=== PATIENT | male | born 1960 | race Caucasian/White ===

== ENCOUNTER 2019-02-15 09:00 | Inpatient (IN) | payer MEDICAID ==
[~2019-02-15] VITALS: Ht 182.9 cm; Wt 69.9 kg
[~2019-02-15 09:00] MED LIST: PHEN100C; vitamin d PO
--- NOTE | 2019-02-15 09:09 | NUR ---
LYUDMILA [facility] AFTER GLF AT [facility]. PT STATES "I FELL FROM THE HEAT". PT NOTED TOHAVE 4 SWEATERS ON. DENIES FEELING LIGHTHEADED/DIZZY PRIOR TO GLF. PT DOES NOT HAVE ANY CURRENT COMPLAINTS. STATES "I'M JUST HERE BECAUSE THEY WANTED ME HERE". PER PT AND [facility] GILMAN HAS PROTOCOLS AND MUST BE MEDICALLY CLEARED TO RETURN. PT RESTING ON GURNEY. NADN. VSS. MONITORS APPLIED.
[2019-02-15] MEDS ORDERED: SODIUM CHLORIDE 0.9% 1,000ML IVBOLUS ONE (09:30)
[2019-02-15 09:44] LABS: BASOPHILS # (AUTO) 0.01 x10^3/uL (0-0.1); BASOPHILS % (AUTO) 0 % (0-1); EOSINOPHILS # (AUTO) 0.14 x10^3/uL (0-0.4); EOSINOPHILS % (AUTO) 4 % (1-7); LYMPHOCYTES # (AUTO) 1.14 x10^3/uL (1-3.4); LYMPHOCYTES % (AUTO) 31 % (22-44); MD NO; MEAN CORPUSCULAR HEMOGLOBIN 34.9 pg (27.5-34.5); MEAN CORPUSCULAR HGB CONC 33.4 g/dL (33.2-36.2); MEAN CORPUSCULAR VOLUME 104.5 fL (81-97); MEAN PLATELET VOLUME 9.8 fL (7.4-10.4); MONOCYTES # (AUTO) 0.34 x10^3/uL (0.2-0.8); MONOCYTES % (AUTO) 9 % (2-9); NEUTROPHILS # (AUTO) 2.11 x10^3/uL (1.8-6.8); NEUTROPHILS % (AUTO) 56 % (42-75); PLATELET COUNT 109 x10^3/uL (130-400); RED BLOOD COUNT 3.58 x10^6/uL (4.38-5.82)
[2019-02-15 09:52] LABS: ANION GAP 4 mmol/L (5-15); CALCIUM 8.7 mg/dL (8.5-10.1); CHLORIDE 108 mmol/L (98-107); CREATININE 0.83 mg/dL (0.7-1.3)
[2019-02-15 09:56] LABS: TROPONIN I < 0.015 ng/mL (0.000-0.045)
--- NOTE | 2019-02-15 10:12 | NUR ---
PT RESTING ON GURNEY. NADN. HAYES.
[2019-02-15 10:54] LABS: MICROSCOPIC NOT IND
--- NOTE | 2019-02-15 12:02 | NUR ---
SPOKE W/ BERNARDO FROM [employer] WHO STATES SHE WILL FAX OVER PT MEDICATION LIST.
[2019-02-15 12:14] LABS: FREE T4 (FREE THYROXINE) 1.04 ng/dL (0.76-1.46)
--- NOTE | 2019-02-15 12:54 | NUR ---
PT CHART REVIEWED AND PLACED FOR RECHECK.
--- NOTE | 2019-02-15 13:15 | NUR ---
PT RESTING ON GURNEY. NADN. HAYES.
[2019-02-15] MEDS ORDERED: SODIUM CHLORIDE 0.9% 1,000 ML IV ONE (13:43)
--- NOTE | 2019-02-15 13:52 | NUR ---
PT RESTING ON GURNEY. NADN. HAYES.
[2019-02-15] MEDS ORDERED: ATOR-2 PO (13:56)
[2019-02-15] MEDS ORDERED: THIA500T PO (13:56)
[2019-02-15] MEDS ORDERED: VIT1TABL3 PO (13:56)
[2019-02-15] MEDS ORDERED: DIVA-61 PO (13:56)
[2019-02-15] MEDS ORDERED: LEVE500T8 PO (13:56)
[2019-02-15] MEDS ORDERED: ZONI100C2 PO (13:56)
[2019-02-15] MEDS ORDERED: FAMO20TA7 PO (13:56)
[2019-02-15] MEDS ORDERED: SODIUM CHLORIDE FLUSH 10ML SYR IVF PRN (14:00)
--- NOTE | 2019-02-15 14:10 | NUR ---
REPORT GIVEN TO JOSS SHRESTHA RN. ALL QUESTIONS ANSWERED. AWAITING PT TRANSPORT.
--- NOTE | 2019-02-15 14:51 | NUR ---
BREAK NOTE: PT. IS RESTING WITHOUT CONCERNS. VSS. PT. REMAINS MONITORED.
[2019-02-15] MEDS ORDERED: BISACODYL 10 MG SUPP PR PRN (15:00)
[2019-02-15] MEDS ORDERED: DOCUSATE 100 MG CAPSULE PO PRN (15:00)
[2019-02-15] MEDS ORDERED: POLYETHYLENE GLYCOL 17 GM PACKET PO PRN (15:00)
[2019-02-15] MEDS ORDERED: hydrALAzine 20 MG/ML, 1ML IVPush PRN (15:00)
[2019-02-15] MEDS ORDERED: HEPARIN 5,000 UNITS/ML, 1ML SQ SCH (15:00)
--- NOTE | 2019-02-15 15:16 | NUR ---
PT TAKEN FOR CT IN STABLE CONDITION.
[2019-02-15] MEDS ORDERED: NICOTINE 14MG/24 HR PATCH.TD24 ONE (15:21)
[2019-02-15] MEDS: SODIUM CHLORIDE 0.9% 1,000 ML IV SCH ×2 (15:29→22:15)
[2019-02-15] MEDS: NICOTINE 14MG/24 HR PATCH.TD24 TD SCH (15:30)
--- NOTE | 2019-02-15 15:32 | NUR ---
PT PROVIDED W/ DINNER TRAY.
[2019-02-15 15:58] LABS: AMPHETAMINE SCREEN, URINE Negative (Negative); BARBITURATE SCREEN, URINE Negative (Negative); BENZODIAZEPINE SCREEN, URINE Negative (Negative); CANNABINOID SCREEN, URINE Negative (Negative); COCAINE SCREEN, URINE Negative (Negative); METHADONE SCREEN, URINE Negative (Negative); OPIATE SCREEN, URINE Negative (Negative)
--- NOTE | 2019-02-15 16:00 | NUR ---
HOSPITAL BED REQUESTED.
[2019-02-15 16:22] LABS: INTERNATIONAL NORMALIZED RATIO 1.03 (0.93-1.1); PROTHROMBIN TIME 10.8 Seconds (9.6-11.5)
[2019-02-15 16:28] LABS: CREATINE KINASE, TOTAL 74 U/L (39-308); TROPONIN I < 0.015 ng/mL (0.000-0.045)
[2019-02-15 16:30] LABS: BASOPHILS # (AUTO) 0.01 x10^3/uL (0-0.1); BASOPHILS % (AUTO) 0 % (0-1); EOSINOPHILS # (AUTO) 0.13 x10^3/uL (0-0.4); EOSINOPHILS % (AUTO) 3 % (1-7); LYMPHOCYTES # (AUTO) 1.44 x10^3/uL (1-3.4); LYMPHOCYTES % (AUTO) 33 % (22-44); MD NO; MEAN CORPUSCULAR HGB CONC 33.6 g/dL (33.2-36.2); MEAN CORPUSCULAR VOLUME 104.2 fL (81-97); MEAN PLATELET VOLUME 9.6 fL (7.4-10.4); MONOCYTES # (AUTO) 0.22 x10^3/uL (0.2-0.8); MONOCYTES % (AUTO) 5 % (2-9); NEUTROPHILS # (AUTO) 2.58 x10^3/uL (1.8-6.8); NEUTROPHILS % (AUTO) 59 % (42-75); PLATELET COUNT 124 x10^3/uL (130-400); RED BLOOD COUNT 4.14 x10^6/uL (4.38-5.82); RED CELL DISTRIBUTION WIDTH 14.7 % (9.4-14.8)
--- NOTE | 2019-02-15 17:02 | NUR ---
PT RESTING ON GURNEY. NADN. HAYES.
--- NOTE | 2019-02-15 17:45 | NUR ---
PT MOVED FROM [facility] TO [facility] BED.
--- NOTE | 2019-02-15 18:59 | NUR ---
REPORT GIVEN TO KOURTNEY HARRELL RN.
[2019-02-15] MEDS ORDERED: LEVETIRACETAM 500 MG TABLET ONE (20:05)
[2019-02-15] MEDS ORDERED: FAMOTIDINE 20 MG TABLET ONE (20:05)
[2019-02-15] MEDS ORDERED: DIVALPROEX 500 MG TAB.ER.24H ONE (20:06)
[2019-02-15] MEDS: ZONISAMIDE 50 MG CAPSULE PO SCH (20:34)
[2019-02-15] MEDS: FAMOTIDINE 20 MG TABLET PO SCH (20:35)
[2019-02-15] MEDS: DIVALPROEX 500 MG TABLET.DR PO SCH (20:35)
[2019-02-15] MEDS: LEVETIRACETAM 500 MG TABLET PO SCH (20:35)
[2019-02-15 21:00] VITALS: BP 91/63
[2019-02-15] MEDS ORDERED: ATORVASTATIN 80 MG TABLET PO SCH (21:00)
[2019-02-15 21:09] LABS: TROPONIN I < 0.015 ng/mL (0.000-0.045)
[2019-02-15 22:17] VITALS: BP 91/63
[2019-02-16 01:25] VITALS: BP 93/55
[2019-02-16] MEDS: SODIUM CHLORIDE 0.9% 1,000 ML IV SCH ×3 (04:05→21:38)
[2019-02-16 06:13] LABS: CHLORIDE 111 mmol/L (98-107)
[2019-02-16 06:24] LABS: ALANINE AMINOTRANSFERASE 13 U/L (12-78); ALBUMIN 2.7 g/dL (3.4-5.0); ALKALINE PHOSPHATASE 39 U/L (45-117); ANION GAP 6 mmol/L (5-15); BILIRUBIN,TOTAL 0.4 mg/dL (0.2-1.0); CALCIUM 8.1 mg/dL (8.5-10.1); CHOL/HDL RATIO 2.1; CHOLESTEROL, TOTAL 90 mg/dL (140-239); CREATININE 0.65 mg/dL (0.7-1.3); HDL CHOL % 47 % (26-37); HDL CHOLESTEROL (DIRECT) 42 mg/dL (40-60); LDL CHOLESTEROL,CALCULATED 33 mg/dL (54-169); LDL/HDL RATIO 0.8 (0.5-3.0); TOTAL PROTEIN 5.4 g/dL (6.4-8.2); TRIGLYCERIDES 73 mg/dL (50-200); VLDL CHOLESTEROL 15 mg/dL (0-25)
[2019-02-16] MEDS ORDERED: POTASSIUM CHLORIDE 20 MEQ TAB.ER.PRT PO ONE (07:00)
[2019-02-16] MEDS ORDERED: MAGNESIUM SULFATE 3 GM in SODIUM CHLORIDE 0.9% 100 ML IV ONE (07:00)
[2019-02-16 08:30] VITALS: BP 99/59
[2019-02-16] MEDS: ZONISAMIDE 50 MG CAPSULE PO SCH ×2 (09:30→21:39)
[2019-02-16] MEDS: DIVALPROEX 500 MG TABLET.DR PO SCH ×2 (09:30→21:41)
[2019-02-16] MEDS: THIAMINE 100MG TABLET PO SCH (09:30)
[2019-02-16] MEDS: LEVETIRACETAM 500 MG TABLET PO SCH ×2 (09:30→21:40)
[2019-02-16] MEDS: FAMOTIDINE 20 MG TABLET PO SCH ×2 (09:30→21:40)
[2019-02-16] MEDS: MULTIVITAMINS/MINERALS TABLET PO SCH (09:30)
[2019-02-16] MEDS: NICOTINE 14MG/24 HR PATCH.TD24 TD SCH (15:00)
[2019-02-16 15:37] VITALS: BP 96/65
[2019-02-16 19:52] VITALS: BP 94/59
[2019-02-16] MEDS ORDERED: ATORVASTATIN 20 MG TABLET PO SCH (21:33)
[2019-02-16] MEDS: ATORVASTATIN 20 MG TABLET PO SCH (22:13)
[2019-02-17 00:51] VITALS: BP 97/55
[2019-02-17 01:28] VITALS: BP_SYST 101; BP_SYST 106; BP_SYST 108; BP_DIAS 67; BP_DIAS 70; BP_DIAS 72
[2019-02-17] MEDS: SODIUM CHLORIDE 0.9% 1,000 ML IV SCH (03:27)
[2019-02-17] MEDS: ACETAMINOPHEN 325 MG TABLET PO PRN (05:47)
[2019-02-17 06:12] LABS: CHLORIDE 113 mmol/L (98-107)
[2019-02-17 06:18] LABS: ALANINE AMINOTRANSFERASE 14 U/L (12-78); ALBUMIN 2.9 g/dL (3.4-5.0); ALKALINE PHOSPHATASE 37 U/L (45-117); ANION GAP 5 mmol/L (5-15); BILIRUBIN,TOTAL 0.4 mg/dL (0.2-1.0); CALCIUM 8.2 mg/dL (8.5-10.1); CREATININE 0.75 mg/dL (0.7-1.3); TOTAL PROTEIN 5.9 g/dL (6.4-8.2)
[2019-02-17 06:50] VITALS: BP 90/46
[2019-02-17] MEDS: SODIUM CHLORIDE 0.45% 1,000 ML IV SCH ×3 (08:00→22:27)
[2019-02-17] MEDS: ZONISAMIDE 50 MG CAPSULE PO SCH ×2 (08:49→22:19)
[2019-02-17] MEDS: MULTIVITAMINS/MINERALS TABLET PO SCH (08:49)
[2019-02-17] MEDS: FAMOTIDINE 20 MG TABLET PO SCH ×2 (08:49→22:20)
[2019-02-17] MEDS: DIVALPROEX 500 MG TABLET.DR PO SCH ×2 (08:49→22:20)
[2019-02-17] MEDS: THIAMINE 100MG TABLET PO SCH (08:49)
[2019-02-17] MEDS: LEVETIRACETAM 500 MG TABLET PO SCH ×2 (08:49→22:20)
[2019-02-17 13:49] VITALS: BP 102/70
[2019-02-17] MEDS: NICOTINE 14MG/24 HR PATCH.TD24 TD SCH (14:48)
[2019-02-17] MEDS ORDERED: IBUP-1221 PO (17:11)
[2019-02-17] MEDS ORDERED: DIVA-61 PO (17:11)
[2019-02-17] MEDS ORDERED: ZONI50CA2 PO (17:11)
[2019-02-17] MEDS ORDERED: FEXO60TA9 PO (17:11)
[2019-02-17] MEDS ORDERED: LACT10SO28 PO (17:11)
[2019-02-17] MEDS ORDERED: LEVE750T21 PO (17:11)
[2019-02-17] MEDS ORDERED: FERR325T16 PO (17:11)
[2019-02-17] MEDS ORDERED: CHOL2000 PO (17:11)
[2019-02-17] MEDS ORDERED: ASPI-650 PO (17:11)
[2019-02-17] MEDS ORDERED: IBUP-1222 PO (17:11)
[2019-02-17 20:00] VITALS: BP 93/67
[2019-02-17] MEDS: ATORVASTATIN 20 MG TABLET PO SCH (22:20)
[2019-02-18 03:30] VITALS: BP 98/62
[2019-02-18 06:03] LABS: BASOPHILS # (AUTO) 0.03 x10^3/uL (0-0.1); BASOPHILS % (AUTO) 1 % (0-1); EOSINOPHILS # (AUTO) 0.31 x10^3/uL (0-0.4); EOSINOPHILS % (AUTO) 5 % (1-7); LYMPHOCYTES # (AUTO) 1.65 x10^3/uL (1-3.4); LYMPHOCYTES % (AUTO) 28 % (22-44); MD NO; MEAN CORPUSCULAR HEMOGLOBIN 35.8 pg (27.5-34.5); MEAN CORPUSCULAR HGB CONC 34.4 g/dL (33.2-36.2); MEAN CORPUSCULAR VOLUME 104.2 fL (81-97); MEAN PLATELET VOLUME 9.6 fL (7.4-10.4); MONOCYTES # (AUTO) 0.62 x10^3/uL (0.2-0.8); MONOCYTES % (AUTO) 11 % (2-9); NEUTROPHILS # (AUTO) 3.28 x10^3/uL (1.8-6.8); NEUTROPHILS % (AUTO) 56 % (42-75); PLATELET COUNT 120 x10^3/uL (130-400); RED BLOOD COUNT 3.91 x10^6/uL (4.38-5.82); RED CELL DISTRIBUTION WIDTH 14.6 % (9.4-14.8)
[2019-02-18 06:07] LABS: ALANINE AMINOTRANSFERASE 18 U/L (12-78); ALBUMIN 3.2 g/dL (3.4-5.0); ANION GAP 5 mmol/L (5-15); CHLORIDE 110 mmol/L (98-107); CREATININE 0.77 mg/dL (0.7-1.3)
[2019-02-18 06:09] LABS: ALKALINE PHOSPHATASE 45 U/L (45-117); BILIRUBIN,TOTAL 0.5 mg/dL (0.2-1.0); TOTAL PROTEIN 6.5 g/dL (6.4-8.2)
[2019-02-18 08:00] VITALS: BP 88/57
[2019-02-18] MEDS ORDERED: COSYNTROPIN 0.25 MG IM ONE (08:00)
[2019-02-18] MEDS: DIVALPROEX 500 MG TABLET.DR PO SCH ×2 (08:40→21:05)
[2019-02-18] MEDS: MULTIVITAMINS/MINERALS TABLET PO SCH (08:40)
[2019-02-18] MEDS: LEVETIRACETAM 500 MG TABLET PO SCH ×2 (08:40→21:05)
[2019-02-18] MEDS: THIAMINE 100MG TABLET PO SCH (08:41)
[2019-02-18] MEDS: FAMOTIDINE 20 MG TABLET PO SCH ×2 (08:41→21:05)
[2019-02-18] MEDS: ZONISAMIDE 50 MG CAPSULE PO SCH ×2 (09:15→21:06)
[2019-02-18] MEDS ORDERED: HYDR20TA PO (11:18)
[2019-02-18] MEDS ORDERED: HYDR10TA PO (11:18)
[2019-02-18] MEDS: HYDROCORTISONE 20 MG TABLET PO SCH (12:06)
[2019-02-18 14:00] VITALS: BP 93/56
[2019-02-18] MEDS: NICOTINE 14MG/24 HR PATCH.TD24 TD SCH (14:12)
[2019-02-18] MEDS: ACETAMINOPHEN 325 MG TABLET PO PRN (14:20)
[2019-02-18 18:57] VITALS: BP 102/67
[2019-02-18] MEDS: ATORVASTATIN 20 MG TABLET PO SCH (21:06)
[2019-02-19 00:16] VITALS: BP 95/55
[2019-02-19 06:45] VITALS: BP 99/49
[2019-02-19] MEDS: FAMOTIDINE 20 MG TABLET PO SCH ×2 (08:36→21:03)
[2019-02-19] MEDS: THIAMINE 100MG TABLET PO SCH (08:36)
[2019-02-19] MEDS: HYDROCORTISONE 20 MG TABLET PO SCH (08:36)
[2019-02-19] MEDS: DIVALPROEX 500 MG TABLET.DR PO SCH ×2 (08:36→21:03)
[2019-02-19] MEDS: LEVETIRACETAM 500 MG TABLET PO SCH ×2 (08:36→21:03)
[2019-02-19] MEDS: MULTIVITAMINS/MINERALS TABLET PO SCH (08:36)
[2019-02-19] MEDS: ZONISAMIDE 50 MG CAPSULE PO SCH ×2 (08:51→21:04)
[2019-02-19 14:55] VITALS: BP 97/62
[2019-02-19] MEDS: NICOTINE 14MG/24 HR PATCH.TD24 TD SCH (15:04)
[2019-02-19 18:58] VITALS: BP 107/66
[2019-02-19] MEDS: ATORVASTATIN 20 MG TABLET PO SCH (21:03)
[2019-02-19] MEDS: HYDROCORTISONE 10 MG TABLET PO SCH (21:03)
[2019-02-20 01:45] VITALS: BP 104/68
[2019-02-20 06:57] VITALS: BP 100/65
[2019-02-20] MEDS: DIVALPROEX 500 MG TABLET.DR PO SCH ×2 (08:25→20:57)
[2019-02-20] MEDS: FAMOTIDINE 20 MG TABLET PO SCH ×2 (08:25→20:57)
[2019-02-20] MEDS: HYDROCORTISONE 20 MG TABLET PO SCH (08:25)
[2019-02-20] MEDS: MULTIVITAMINS/MINERALS TABLET PO SCH (08:25)
[2019-02-20] MEDS: HYDROCORTISONE 10 MG TABLET PO SCH (08:25)
[2019-02-20] MEDS: THIAMINE 100MG TABLET PO SCH (08:25)
[2019-02-20] MEDS: LEVETIRACETAM 500 MG TABLET PO SCH ×2 (08:25→20:57)
[2019-02-20] MEDS: ZONISAMIDE 50 MG CAPSULE PO SCH ×2 (08:29→20:56)
[2019-02-20 13:04] VITALS: BP 92/61
[2019-02-20] MEDS: NICOTINE 14MG/24 HR PATCH.TD24 TD SCH (15:00)
[2019-02-20 18:53] VITALS: BP 103/67
[2019-02-20] MEDS: ATORVASTATIN 20 MG TABLET PO SCH (20:57)
[2019-02-20] MEDS ORDERED: ZONISAMIDE 50 MG CAPSULE PO SCH (21:00)
[2019-02-21 01:39] VITALS: BP 97/62
[2019-02-21] MEDS: HYDROCORTISONE 20 MG TABLET PO SCH (07:30)
[2019-02-21 07:57] VITALS: BP 93/63
[2019-02-21] MEDS: FAMOTIDINE 20 MG TABLET PO SCH ×2 (08:00→20:03)
[2019-02-21] MEDS: LEVETIRACETAM 500 MG TABLET PO SCH ×2 (08:00→20:02)
[2019-02-21] MEDS: HYDROCORTISONE 10 MG TABLET PO SCH ×2 (08:00→20:03)
[2019-02-21] MEDS: MULTIVITAMINS/MINERALS TABLET PO SCH (08:00)
[2019-02-21] MEDS: DIVALPROEX 500 MG TABLET.DR PO SCH ×2 (08:00→20:02)
[2019-02-21] MEDS: ZONISAMIDE 50 MG CAPSULE PO SCH ×2 (08:00→20:03)
[2019-02-21] MEDS: THIAMINE 100MG TABLET PO SCH (08:00)
[2019-02-21 12:18] VITALS: BP 97/63
[2019-02-21] MEDS: NICOTINE 14MG/24 HR PATCH.TD24 TD SCH (15:45)
[2019-02-21 19:17] VITALS: BP 96/58
[2019-02-21] MEDS: ATORVASTATIN 20 MG TABLET PO SCH (20:03)
[2019-02-22] VITALS (7 sets, daily range): BP systolic 93–105; BP diastolic 57–67
[2019-02-22] MEDS: MULTIVITAMINS/MINERALS TABLET PO SCH (08:12)
[2019-02-22] MEDS: THIAMINE 100MG TABLET PO SCH (08:12)
[2019-02-22] MEDS: ZONISAMIDE 50 MG CAPSULE PO SCH ×2 (08:12→21:28)
[2019-02-22] MEDS: LEVETIRACETAM 500 MG TABLET PO SCH ×2 (08:12→21:27)
[2019-02-22] MEDS: HYDROCORTISONE 20 MG TABLET PO SCH (08:12)
[2019-02-22] MEDS: FAMOTIDINE 20 MG TABLET PO SCH ×2 (08:13→21:27)
[2019-02-22] MEDS: DIVALPROEX 500 MG TABLET.DR PO SCH ×2 (08:13→21:27)
[2019-02-22] MEDS: NICOTINE 14MG/24 HR PATCH.TD24 TD SCH (15:00)
[2019-02-22] MEDS: ATORVASTATIN 20 MG TABLET PO SCH (21:27)
[2019-02-22] MEDS: HYDROCORTISONE 10 MG TABLET PO SCH (21:27)
[2019-02-23 01:27] VITALS: BP 100/63
[2019-02-23 07:00] VITALS: BP 107/69
[2019-02-23] MEDS: LEVETIRACETAM 500 MG TABLET PO SCH ×2 (07:50→21:12)
[2019-02-23] MEDS: DIVALPROEX 500 MG TABLET.DR PO SCH ×2 (07:50→21:12)
[2019-02-23] MEDS: FAMOTIDINE 20 MG TABLET PO SCH ×2 (07:50→21:12)
[2019-02-23] MEDS: THIAMINE 100MG TABLET PO SCH (07:50)
[2019-02-23] MEDS: ZONISAMIDE 50 MG CAPSULE PO SCH ×2 (07:50→21:12)
[2019-02-23] MEDS: HYDROCORTISONE 20 MG TABLET PO SCH (07:50)
[2019-02-23] MEDS: MULTIVITAMINS/MINERALS TABLET PO SCH (07:54)
[2019-02-23] MEDS: NICOTINE 14MG/24 HR PATCH.TD24 TD SCH (14:50)
[2019-02-23 15:20] VITALS: BP 103/65
[2019-02-23 21:06] VITALS: BP 104/68
[2019-02-23] MEDS: ATORVASTATIN 20 MG TABLET PO SCH (21:12)
[2019-02-23] MEDS: HYDROCORTISONE 10 MG TABLET PO SCH (21:12)
[2019-02-24 01:19] VITALS: BP 97/59
[2019-02-24 07:48] VITALS: BP 96/63
[2019-02-24] MEDS: HYDROCORTISONE 20 MG TABLET PO SCH (07:51)
[2019-02-24] MEDS: MULTIVITAMINS/MINERALS TABLET PO SCH (07:51)
[2019-02-24] MEDS: DIVALPROEX 500 MG TABLET.DR PO SCH ×2 (07:51→21:07)
[2019-02-24] MEDS: THIAMINE 100MG TABLET PO SCH (07:51)
[2019-02-24] MEDS: FAMOTIDINE 20 MG TABLET PO SCH ×2 (07:51→21:07)
[2019-02-24] MEDS: ZONISAMIDE 50 MG CAPSULE PO SCH ×2 (07:51→21:07)
[2019-02-24] MEDS: LEVETIRACETAM 500 MG TABLET PO SCH ×2 (07:51→21:07)
[2019-02-24] MEDS: ACETAMINOPHEN 325 MG TABLET PO PRN (11:01)
[2019-02-24 14:00] VITALS: BP 102/67
[2019-02-24] MEDS: NICOTINE 14MG/24 HR PATCH.TD24 TD SCH (15:00)
[2019-02-24 19:36] VITALS: BP 146/65
[2019-02-24] MEDS: HYDROCORTISONE 10 MG TABLET PO SCH (21:07)
[2019-02-24] MEDS: ATORVASTATIN 20 MG TABLET PO SCH (21:07)
[2019-02-25 01:05] VITALS: BP 95/58
[2019-02-25 07:13] VITALS: BP 96/60
[2019-02-25] MEDS: FAMOTIDINE 20 MG TABLET PO SCH ×2 (08:00→20:26)
[2019-02-25] MEDS: DIVALPROEX 500 MG TABLET.DR PO SCH ×2 (08:00→20:25)
[2019-02-25] MEDS: THIAMINE 100MG TABLET PO SCH (08:00)
[2019-02-25] MEDS: HYDROCORTISONE 20 MG TABLET PO SCH (08:00)
[2019-02-25] MEDS: LEVETIRACETAM 500 MG TABLET PO SCH ×2 (08:00→20:26)
[2019-02-25] MEDS: ZONISAMIDE 50 MG CAPSULE PO SCH ×2 (08:00→20:26)
[2019-02-25] MEDS: MULTIVITAMINS/MINERALS TABLET PO SCH (08:00)
[2019-02-25] MEDS: NICOTINE 14MG/24 HR PATCH.TD24 TD SCH (14:30)
[2019-02-25 14:56] VITALS: BP 91/58
[2019-02-25 19:47] VITALS: BP 95/58
[2019-02-25] MEDS: ATORVASTATIN 20 MG TABLET PO SCH (20:25)
[2019-02-25] MEDS: HYDROCORTISONE 10 MG TABLET PO SCH (20:26)
[2019-02-26 01:16] VITALS: BP 106/66
[2019-02-26 07:43] VITALS: BP 99/65
[2019-02-26] MEDS: LEVETIRACETAM 500 MG TABLET PO SCH ×2 (08:35→21:04)
[2019-02-26] MEDS: HYDROCORTISONE 20 MG TABLET PO SCH (08:35)
[2019-02-26] MEDS: MULTIVITAMINS/MINERALS TABLET PO SCH (08:35)
[2019-02-26] MEDS: THIAMINE 100MG TABLET PO SCH (08:35)
[2019-02-26] MEDS: DIVALPROEX 500 MG TABLET.DR PO SCH ×2 (08:35→21:04)
[2019-02-26] MEDS: FAMOTIDINE 20 MG TABLET PO SCH ×2 (08:35→21:04)
[2019-02-26 12:35] VITALS: BP 94/60
[2019-02-26] MEDS: ZONISAMIDE 50 MG CAPSULE PO SCH ×2 (12:39→21:06)
[2019-02-26] MEDS: NICOTINE 14MG/24 HR PATCH.TD24 TD SCH (12:39)
[2019-02-26 19:29] VITALS: BP 96/61
[2019-02-26] MEDS: HYDROCORTISONE 10 MG TABLET PO SCH (21:04)
[2019-02-26] MEDS: ATORVASTATIN 20 MG TABLET PO SCH (21:04)
[2019-02-27 01:38] VITALS: BP 93/57
[2019-02-27 07:39] VITALS: BP 105/66
[2019-02-27] MEDS: MULTIVITAMINS/MINERALS TABLET PO SCH (08:02)
[2019-02-27] MEDS: DIVALPROEX 500 MG TABLET.DR PO SCH ×2 (08:02→20:51)
[2019-02-27] MEDS: THIAMINE 100MG TABLET PO SCH (08:02)
[2019-02-27] MEDS: ZONISAMIDE 50 MG CAPSULE PO SCH ×2 (08:02→21:11)
[2019-02-27] MEDS: LEVETIRACETAM 500 MG TABLET PO SCH ×2 (08:02→20:51)
[2019-02-27] MEDS: FAMOTIDINE 20 MG TABLET PO SCH ×2 (08:02→20:51)
[2019-02-27] MEDS: HYDROCORTISONE 20 MG TABLET PO SCH (08:02)
[2019-02-27] MEDS: NICOTINE 14MG/24 HR PATCH.TD24 TD SCH (08:57)
[2019-02-27 13:05] VITALS: BP 100/64
[2019-02-27 19:46] VITALS: BP 94/59
[2019-02-27] MEDS: ATORVASTATIN 20 MG TABLET PO SCH (20:51)
[2019-02-27] MEDS: HYDROCORTISONE 10 MG TABLET PO SCH (20:51)
[2019-02-28 01:55] VITALS: BP 95/59
[2019-02-28 07:59] VITALS: BP 96/63
[2019-02-28] MEDS: HYDROCORTISONE 20 MG TABLET PO SCH (08:27)
[2019-02-28] MEDS: THIAMINE 100MG TABLET PO SCH (08:27)
[2019-02-28] MEDS: FAMOTIDINE 20 MG TABLET PO SCH ×2 (08:27→20:25)
[2019-02-28] MEDS: ZONISAMIDE 50 MG CAPSULE PO SCH ×2 (08:27→20:25)
[2019-02-28] MEDS: MULTIVITAMINS/MINERALS TABLET PO SCH (08:27)
[2019-02-28] MEDS: LEVETIRACETAM 500 MG TABLET PO SCH ×2 (08:32→20:25)
[2019-02-28] MEDS: DIVALPROEX 500 MG TABLET.DR PO SCH ×2 (08:32→20:25)
[2019-02-28 12:54] VITALS: BP 93/57
[2019-02-28] MEDS: NICOTINE 14MG/24 HR PATCH.TD24 TD SCH (15:00)
[2019-02-28] MEDS: ATORVASTATIN 20 MG TABLET PO SCH (20:25)
[2019-02-28] MEDS: HYDROCORTISONE 10 MG TABLET PO SCH (20:25)
[2019-02-28 20:37] VITALS: BP 102/61
[2019-03-01 02:03] VITALS: BP 94/60
[2019-03-01 07:54] VITALS: BP 96/59
[2019-03-01] MEDS: ZONISAMIDE 50 MG CAPSULE PO SCH ×2 (08:54→20:42)
[2019-03-01] MEDS: DIVALPROEX 500 MG TABLET.DR PO SCH ×2 (08:54→20:42)
[2019-03-01] MEDS: MULTIVITAMINS/MINERALS TABLET PO SCH (08:54)
[2019-03-01] MEDS: LEVETIRACETAM 500 MG TABLET PO SCH ×2 (08:55→20:42)
[2019-03-01] MEDS: THIAMINE 100MG TABLET PO SCH (08:55)
[2019-03-01] MEDS: HYDROCORTISONE 20 MG TABLET PO SCH (08:55)
[2019-03-01] MEDS: FAMOTIDINE 20 MG TABLET PO SCH ×2 (08:55→20:42)
[2019-03-01 13:18] VITALS: BP 92/63
[2019-03-01] MEDS: NICOTINE 14MG/24 HR PATCH.TD24 TD SCH (14:10)
[2019-03-01] MEDS: ENOXAPARIN 40 MG/0.4 ML SQ SCH (14:12)
[2019-03-01 19:05] VITALS: BP 96/58
[2019-03-01] MEDS: ATORVASTATIN 20 MG TABLET PO SCH (20:42)
[2019-03-01] MEDS: HYDROCORTISONE 10 MG TABLET PO SCH (20:42)
[2019-03-02 01:08] VITALS: BP 134/72
[2019-03-02] MEDS: HYDROCORTISONE 20 MG TABLET PO SCH (08:05)
[2019-03-02] MEDS: MULTIVITAMINS/MINERALS TABLET PO SCH (08:05)
[2019-03-02] MEDS: LEVETIRACETAM 500 MG TABLET PO SCH (08:05)
[2019-03-02] MEDS: DIVALPROEX 500 MG TABLET.DR PO SCH (08:05)
[2019-03-02] MEDS: FAMOTIDINE 20 MG TABLET PO SCH (08:05)
[2019-03-02] MEDS: THIAMINE 100MG TABLET PO SCH (08:05)
[2019-03-02] MEDS: ZONISAMIDE 50 MG CAPSULE PO SCH (08:05)
[2019-03-02 08:44] VITALS: BP 104/68
[2019-03-02] MEDS: ENOXAPARIN 40 MG/0.4 ML SQ SCH (13:30)
[2019-03-02] MEDS: NICOTINE 14MG/24 HR PATCH.TD24 TD SCH (14:29)
== END 2019-03-02 15:47 | DRG 312 ==
LOC: ED 13:00 → EDIP 13:43 → 5SO 21:04 → 3NE 02-20 20:03
PROVIDERS: ADMIT Internal Medicine; ATTEND Internal Medicine
DX: R55 Syncope and collapse (principal); E27.40 Unspecified adrenocortical insufficiency; R00.1 Bradycardia, unspecified; D64.9 Anemia, unspecified; D69.6 Thrombocytopenia, unspecified; D75.89 Other specified diseases of blood and blood-forming organs; R41.89 Other symptoms and signs involving cognitive functions and awareness; E78.5 Hyperlipidemia, unspecified; E83.42 Hypomagnesemia; F17.210 Nicotine dependence, cigarettes, uncomplicated; G40.909 Epilepsy, unspecified, not intractable, without status epilepticus; I95.0 Idiopathic hypotension; Z79.899 Other long term (current) drug therapy; Z91.19 Patient's noncompliance with other medical treatment and regimen
CPT/HCPCS: 36415; 70450; 80048; 80053; 80061; 80177; 80185; 80186; 80307; 81003; 82533; 82550; 82607; 83735; 84100; 84439; 84443; 84484; 85025; 85610; 93005; 93306; 93880; G0378; J1650; J3475; 92523-GN; J0834; J7030

== ENCOUNTER 2019-03-27 13:55 | Emergency (ER) | payer MEDICAID ==
[~2019-03-27] VITALS: Ht 182.9 cm; Wt 66.0 kg
[~2019-03-27 13:55] MED LIST changes: +ASPI-650 PO; +ATOR-2 PO; +CHOL2000 PO; +DIVA-61 PO; +FAMO20TA7 PO; +FERR325T16 PO; +FEXO60TA9 PO; +HYDR10TA PO; +HYDR20TA PO; +IBUP-1221 PO; +IBUP-1222 PO; +LACT10SO28 PO; +LEVE500T8 PO; +LEVE750T21 PO; +THIA500T PO; +VIT1TABL3 PO; +ZONI100C2 PO; +ZONI50CA2 PO
--- NOTE | 2019-03-27 13:55 | NUR ---
JOSELINE from [facility] c/o "can't walk" after EtOH intoxication "because they were evicting me today". no interventions [employer] per EMS, pt responds to staff/follows some directions with frequent redirection, NAD, comfort measures provided, call light within reach.
--- NOTE | 2019-03-27 15:00 | NUR ---
pt upright on gurney with eyes closed, responds to staff with verbal stimuli, NAD, comfort measures provided, call light within reach. pt to CT
--- NOTE | 2019-03-27 15:13 | NUR ---
pt returned from CT
[2019-03-27 15:32] LABS: BASOPHILS # (AUTO) 0.01 x10^3/uL (0-0.1); BASOPHILS % (AUTO) 0 % (0-1); EOSINOPHILS % (AUTO) 0 % (1-7); LYMPHOCYTES # (AUTO) 1.87 x10^3/uL (1-3.4); LYMPHOCYTES % (AUTO) 29 % (22-44); MD NO; MEAN CORPUSCULAR HEMOGLOBIN 35.3 pg (27.5-34.5); MEAN CORPUSCULAR HGB CONC 33.1 g/dL (33.2-36.2); MEAN CORPUSCULAR VOLUME 106.7 fL (81-97); MEAN PLATELET VOLUME 8.6 fL (7.4-10.4); MONOCYTES % (AUTO) 8 % (2-9); NEUTROPHILS # (AUTO) 4.17 x10^3/uL (1.8-6.8); NEUTROPHILS % (AUTO) 64 % (42-75); PLATELET COUNT 134 x10^3/uL (130-400); RED BLOOD COUNT 3.61 x10^6/uL (4.38-5.82); RED CELL DISTRIBUTION WIDTH 14.6 % (9.4-14.8)
[2019-03-27 15:42] LABS: ALANINE AMINOTRANSFERASE 17 U/L (12-78); ALBUMIN 2.9 g/dL (3.4-5.0); ANION GAP 12 mmol/L (5-15); CALCIUM 8.9 mg/dL (8.5-10.1); CHLORIDE 109 mmol/L (98-107); CREATININE 0.79 mg/dL (0.7-1.3)
[2019-03-27 15:45] LABS: ALKALINE PHOSPHATASE 37 U/L (45-117); BILIRUBIN,TOTAL 0.5 mg/dL (0.2-1.0); TOTAL PROTEIN 6.2 g/dL (6.4-8.2)
--- NOTE | 2019-03-27 15:58 | NUR ---
[facility], [facility], responds to staff with verbal stimuli, NAD, comfort measures provided, call light within reach.
[2019-03-27 17:01] VITALS: BP 92/53
--- NOTE | 2019-03-27 17:01 | NUR ---
pt upright on gurney awake & comfortable, watching TV, responds to staff with verbal stimuli, NAD, comfort measures provided, call light within reach.
[2019-03-27] MEDS ORDERED: POTASSIUM CHLORIDE 20 MEQ TAB.ER.PRT ONE (17:07)
[2019-03-27] MEDS ORDERED: MAGNESIUM OXIDE 400 MG TABLET ONE (17:07)
[2019-03-27] MEDS ORDERED: MAGNESIUM OXIDE 400 MG TABLET PO ONE (17:30)
[2019-03-27] MEDS ORDERED: POTASSIUM CHLORIDE 20 MEQ TAB.ER.PRT PO ONE (17:30)
--- NOTE | 2019-03-27 18:46 | NUR ---
Patient given discharge instructions and they have confirmed that they understand the instructions. Patient ambulatory with steady gait.
== END 2019-03-27 18:46 | disposition home or self-care (01) ==
LOC: ED 18:30
DX: F10.120 Alcohol abuse with intoxication, uncomplicated (principal); G40.909 Epilepsy, unspecified, not intractable, without status epilepticus; I95.9 Hypotension, unspecified
CPT/HCPCS: 36415; 70450; 80053; 80307; 85025; 99284

== ENCOUNTER 2019-03-28 12:04 | Emergency (ER) | payer MEDICAID ==
[~2019-03-28] VITALS: Ht 182.9 cm; Wt 80.0 kg
[2019-03-28 12:12] VITALS: BP 121/83
--- NOTE | 2019-03-28 13:05 | NUR ---
PT TO CT VIA [facility].
--- NOTE | 2019-03-28 13:28 | NUR ---
BREAK RN: PT LAYING ON GURNEY AWAKE & COMFORTABLE, WOUND CARE IN PROGRESS, RESPONDS APPROP TO STAFF, NAD, COMFORT MEASURES PROVIDED, CALL LIGHT WITHIN REACH.
--- NOTE | 2019-03-28 14:36 | NUR ---
WOUND CARE COMPLETED. PT CURRENTLY AT HIS BASELINE. ABLE TO AMBULATE WITH A STEADY GAIT. PT THEN AMBULATED TO D/C WITH STEADY GAIT. PT GIVEN [employer] VOUCHER FOR SAFE D/C HOME AND [employer] CALLED TO PICK HIM UP.
== END 2019-03-28 14:40 | disposition home or self-care (01) ==
LOC: ED 14:15
DX: S01.112A Laceration without foreign body of left eyelid and periocular area, initial encounter (principal); F10.10 Alcohol abuse, uncomplicated; F17.210 Nicotine dependence, cigarettes, uncomplicated; W19.XXXA Unspecified fall, initial encounter; Y93.89 Activity, other specified; Y92.410 Unspecified street and highway as the place of occurrence of the external cause; Y99.8 Other external cause status
CPT/HCPCS: 12051; 70450; 99284